=== PATIENT | female | born 1985 | race American Indian/Alaskan Native ===

== ENCOUNTER 2021-09-17 23:55 | Emergency (ER) | payer SELFPAY ==
[2021-09-18] MEDS ORDERED: ALPRAZolam 0.5 MG TAB PO ONE (00:36)
--- NOTE | 2021-09-18 00:36 | Emergency Department Report ---
HPI - General Chief Complaint: Psych Time Seen by Provider: 09/18/21 00:24 - HPI HPI: 36-year-old -[place] female presents to the emergency department with the need of a mental health evaluation. Patient called her friend because she said that there were people in her house who were trying to kill her. The patient's friend apparently had concerned that she was having some type of psychosis and called 911. Patient says that people have been following her and attempting to kill her for the past 6 months. Even during my examination the patient says that there are people right next to her that are "shaking my chair", and "I can always see them but I know that they are there." Patient denies any past medical or psychiatric history. While patient appears to be having hallucinations, she denies any auditory or visual hallucinations, and she denies any suicidal or homicidal ideations. ED Past Medical Hx - Past Medical History Previous Medical History?: No - Surgical History Past Surgical History?: No - Social History Smoking Status: Never Smoker Substance Use Type: None ED Review of Systems ROS: Stated complaint: MENTAL HEALTH Other details as noted in HPI Comment: All other systems reviewed and negative Constitutional: denies: chills, fever Respiratory: denies: cough, shortness of breath Cardiovascular: denies: chest pain, palpitations Gastrointestinal: denies: abdominal pain, vomiting Musculoskeletal: denies: back pain, arthralgia Neurological: denies: headache, weakness Psychiatric: denies: homicidal thoughts, suicidal thoughts Physical Exam - Physical Exam Vital Signs: Vital Signs 09/17/21 23:58 Temperature 98.4 F Pulse Rate 99 H Respiratory 20 Rate Blood Pressure 141/92 O2 Sat by Pulse 100 Oximetry Physical Exam: GENERAL: The patient is well-developed well-nourished. HENT: Normocephalic. Atraumatic. Patient has moist mucous membranes. EYES: Extraocular motions are intact. NECK: Supple. Trachea is midline. CHEST/LUNGS: Clear to auscultation. There is no respiratory distress noted. HEART/CARDIOVASCULAR: Regular. There is no tachycardia. There is no murmur. ABDOMEN: Abdomen is soft, nontender. Patient has normal bowel sounds. SKIN: Skin is warm and dry. NEURO: The patient is awake, alert, and cooperative. Normal speech. MUSCULOSKELETAL: There is no tenderness or deformity. There is no limitation range of motion. PSYCH: Patient is anxious. ED Course Vital Signs 09/17/21 23:58 Temperature 98.4 F Pulse Rate 99 H Respiratory 20 Rate Blood Pressure 141/92 O2 Sat by Pulse 100 Oximetry ED Medical Decision Making - Lab Data Result diagrams: 09/18/21 01:14 09/18/21 01:14 Lab Results 09/18/21 09/18/21 09/18/21 Range/Units 00:17 00:17 01:14 WBC 5.1 (4.5-11.0) K/mm3 RBC 3.59 L (3.65-5.03) M/mm3 Hgb 12.6 (10.1-14.3) gm/dl Hct 39.7 (30.3-42.9) % MCV 111 H (79-97) fl MCH 35 H (28-32) pg MCHC 32 (30-34) % RDW 16.4 H (13.2-15.2) % Plt Count 193 (140-440) K/mm3 Lymph % (Auto) 30.8 (13.4-35.0) % [place] % (Auto) 8.5 H (0.0-7.3) % Eos % (Auto) 0.2 (0.0-4.3) % Baso % (Auto) 0.7 (0.0-1.8) % Lymph # (Auto) 1.6 (1.2-5.4) K/mm3 [place] # (Auto) 0.4 (0.0-0.8) K/mm3 Eos # (Auto) 0.0 (0.0-0.4) K/mm3 Baso # (Auto) 0.0 (0.0-0.1) K/mm3 Seg Neutrophils % 59.8 (40.0-70.0) % Seg Neutrophils # 3.1 (1.8-7.7) K/mm3 Sodium (137-145) mmol/L Potassium (3.6-5.0) mmol/L Chloride (98-107) mmol/L Carbon Dioxide (22-30) mmol/L Anion Gap mmol/L BUN (7-17) mg/dL Creatinine (0.6-1.2) mg/dL Estimated GFR ml/min BUN/Creatinine Ratio % Glucose (65-100) mg/dL Calcium (8.4-10.2) mg/dL Urine Color Pearl (Yellow) Urine Turbidity Cloudy (Clear) Urine pH 6.0 (5.0-7.0) Ur Specific [place] 1.020 (1.003-1.030) Urine Protein 100 mg/dl (Negative) mg/dL Urine Glucose (UA) Neg (Negative) mg/dL Urine Ketones 20 (Negative) mg/dL Urine Blood Mod (Negative) Urine Nitrite Neg (Negative) Urine Bilirubin Sm (Negative) Urine Ictotest Negative (Negative) Urine Urobilinogen 4.0 (<2.0) mg/dL Ur Leukocyte Esterase Lg (Negative) Urine WBC (Auto) > 182.0 H (0.0-6.0) /HPF Urine RBC (Auto) 63.0 (0.0-6.0) /HPF U Epithel Cells (Auto) 2.0 (0-13.0) /HPF Urine Bacteria (Auto) 2+ (Negative) /HPF Urine WBC Clumps 2+ /HPF Hyaline Casts 5 /LPF Urine Mucus 3+ /HPF Urine Yeast (Budding) 2+ /HPF Urine Opiates Screen Presumptive negative Urine Methadone Screen Presumptive negative Ur Barbiturates Screen Presumptive negative Ur Phencyclidine Scrn Presumptive negative Ur Amphetamines Screen Presumptive negative U Benzodiazepines Scrn Presumptive negative Urine Cocaine Screen Presumptive negative U Marijuana (THC) Screen Presumptive positive Drugs of Abuse Note Disclamer Plasma/Serum Alcohol (0-0.07) % 09/18/21 09/18/21 Range/Units 01:14 01:14 WBC (4.5-11.0) K/mm3 RBC (3.65-5.03) M/mm3 Hgb (10.1-14.3) gm/dl Hct (30.3-42.9) % MCV (79-97) fl MCH (28-32) pg MCHC (30-34) % RDW (13.2-15.2) % Plt Count (140-440) K/mm3 Lymph % (Auto) (13.4-35.0) % [place] % (Auto) (0.0-7.3) % Eos % (Auto) (0.0-4.3) % Baso % (Auto) (0.0-1.8) % Lymph # (Auto) (1.2-5.4) K/mm3 [place] # (Auto) (0.0-0.8) K/mm3 Eos # (Auto) (0.0-0.4) K/mm3 Baso # (Auto) (0.0-0.1) K/mm3 Seg Neutrophils % (40.0-70.0) % Seg Neutrophils # (1.8-7.7) K/mm3 Sodium 137 (137-145) mmol/L Potassium 3.1 L (3.6-5.0) mmol/L Chloride 96.6 L (98-107) mmol/L Carbon Dioxide 22 (22-30) mmol/L Anion Gap 22 mmol/L BUN 7 (7-17) mg/dL Creatinine 0.5 L (0.6-1.2) mg/dL Estimated GFR > 60 ml/min BUN/Creatinine Ratio 14 % Glucose 79 (65-100) mg/dL Calcium 9.4 (8.4-10.2) mg/dL Urine Color (Yellow) Urine Turbidity (Clear) Urine pH (5.0-7.0) Ur Specific [place] (1.003-1.030) Urine Protein (Negative) mg/dL Urine Glucose (UA) (Negative) mg/dL Urine Ketones (Negative) mg/dL Urine Blood (Negative) Urine Nitrite (Negative) Urine Bilirubin (Negative) Urine Ictotest (Negative) Urine Urobilinogen (<2.0) mg/dL Ur Leukocyte Esterase (Negative) Urine WBC (Auto) (0.0-6.0) /HPF Urine RBC (Auto) (0.0-6.0) /HPF U Epithel Cells (Auto) (0-13.0) /HPF Urine Bacteria (Auto) (Negative) /HPF Urine WBC Clumps /HPF Hyaline Casts /LPF Urine Mucus /HPF Urine Yeast (Budding) /HPF Urine Opiates Screen Urine Methadone Screen Ur Barbiturates Screen Ur Phencyclidine Scrn Ur Amphetamines Screen U Benzodiazepines Scrn Urine Cocaine Screen U Marijuana (THC) Screen Drugs of Abuse Note Plasma/Serum Alcohol < 0.01 (0-0.07) % - Medical Decision Making This patient presents to the emergency department for a mental health evaluation. She has been having hallucinations and/or delusions in which she feels that people are following her and trying to kill her. She admits that even while in the closed psychiatric unit of the emergency department that these nonspecific individuals have even followed her in there. During my initial examination she is saying that they are standing around just making her chair shake. However the patient denies having any hallucinations or any psychiatric history. She does appear to be exhibiting signs of acute psychosis and for this reason she has been placed on a 1013 and an ED hold. Patient's labs shows hypokalemia with a potassium of 3.1 for which she was given potassium chloride. She has a urinary tract infection for which she was placed on Macrobid. Initially the patient agreed to some medication to try and rest so she was given some Xanax. This did not work for her and then the patient started becoming more anxious and agitated. She was given a dose of Geodon and now appears to be resting more comfortably. Vital signs have been reassuring throughout her ED course including being afebrile. The patient is medically cleared for psychiatric placement. Critical Care Time: No Critical care attestation.: If time is entered above; I have spent that time in minutes in the direct care of this critically ill patient, excluding procedure time. ED Disposition Clinical Impression: Acute psychosis, Delusions, Paranoia Disposition: [address] [place] [address] Is pt being admited?: No Condition: Stable Time of Disposition: 04:41
[2021-09-18 00:58] LABS: Bacteria,Urine 2+ /HPF (Negative); Bilirubin,Urine SM (Negative); Blood,Urine MOD (Negative); Color,Urine Amber (Yellow); Hyaline Casts,Urine 5 /LPF; Mucus,Urine 3+ /HPF
[2021-09-18 00:59] LABS: WBC,Urine > 182.0 /HPF (0.0-6.0)
[2021-09-18 01:05] LABS: Ictotest,Urine Negative (Negative)
[2021-09-18 01:19] LABS: Amphetamine Screen,Urine PRESUMPTIVE NEGATIVE; Benzodiazepines Screen,Urine PRESUMPTIVE NEGATIVE; Cannabinoid Screen,Urine PRESUMPTIVE POSITIVE; Cocaine Screen,Urine PRESUMPTIVE NEGATIVE; Methadone Screen,Urine PRESUMPTIVE NEGATIVE; Opiate Screen,Urine PRESUMPTIVE NEGATIVE
[2021-09-18] MEDS: NITROFURANTOIN MONOHYD/M-CRYST 100 MG CAP PO SCH ×2 (01:50→23:15)
[2021-09-18 02:36] LABS: Basophils % (Auto) 0.7 % (0.0-1.8); Eosinophils % (Auto) 0.2 % (0.0-4.3); Hematocrit 39.7 % (30.3-42.9); Hemoglobin 12.6 gm/dl (10.1-14.3); Lymphocytes # (Auto) 1.6 K/mm3 (1.2-5.4); Lymphocytes % (Auto) 30.8 % (13.4-35.0); Mean Corpuscular HGB Conc 32 % (30-34); Mean Corpuscular Volume 111 fl (79-97); Monocytes # (Auto) 0.4 K/mm3 (0.0-0.8); Monocytes % (Auto) 8.5 % (0.0-7.3); Platelet Count 193 K/mm3 (140-440); Red Blood Count 3.59 M/mm3 (3.65-5.03); Red Cell Distribution Width 16.4 % (13.2-15.2)
[2021-09-18] MEDS ORDERED: ZIPRASIDONE MESYLATE 20 MG VIAL IM ONE (03:15)
[2021-09-18 03:45] LABS: BUN/Creatinine Ratio 14; Blood Urea Nitrogen 7 mg/dL (7-17); Calcium 9.4 mg/dL (8.4-10.2); Hemolysis Index 19
[2021-09-18] MEDS ORDERED: POTASSIUM CHLORIDE ER 20 MEQ TAB PO ONE (04:38)
--- NOTE | 2021-09-18 11:34 | Consultation ---
History of Present Illness - Reason for Consult Consult date: 09/18/21 Reason for consult: mental health evaluation - History of Present Psychiatric Illness ED Note :36-year-old -[place] female presents to the emergency department with the need of a mental health evaluation. Patient called her friend because she said that there were people in her house who were trying to kill her. The patient's friend apparently had concerned that she was having some type of psychosis and called 911. Patient says that people have been following her and attempting to kill her for the past 6 months. Even during my examination the patient says that there are people right next to her that are "shaking my chair", and "I can always see them but I know that they are there." Patient denies any past medical or psychiatric history. While patient appears to be having hallucinations, she denies any auditory or visual hallucinations, and she denies any suicidal or homicidal ideation. Alana Strauss is a 36 year old female with no psychiatric history who presents to the for a mental health evaluation. In my interview with the patient, she is calm. The patient is delusional, stating that there are people in her house threatening to kill her for the past one year and that the threats worsened yesterday. She reports having auditory hallucinations stating voices are telling her " are you ready to ." She also reports visual hallucinations stating " I see a whole family." She denies any suicidal/homicidal ideation. PAST PSYCHIATRIC HISTORY: Diagnoses: Denies Suicide attempts or Self-harm behavior: Denies Prior psychiatric hospitalizations:Denies Substance Abuse history:Marijuana, alcohol Previous psychiatric medications tried: Denies Outpatient treatment: Denies PAST MEDICAL HISTORY: None reported or document Family Psychiatric History: None reported or documented SOCIAL HISTORY Marital Status: Living Arrangements: Lives alone Employment Status: employed Access to guns/weapons: Denies Education: 12th grade History of Abuse: Denies Legal History: Denies REVIEW OF SYSTEMS Constitutional: Negative for weight loss ENT: Negative for stridor Respiratory: Negative for cough or hemoptysis All other systems reviewed and are negative MENTAL STATUS EXAMINATION General Appearance and Behavior: Age appropriate, good hygiene, wearing appropriate clothes. cooperative Cooperation: cooperative Psychomotor Behavior: Psychomotor normal Mood:"anxious" Affect and affective range: congruent to stated mood Thought Process: Tangential Thought Content:Paranoid Speech: normal tone and pace Suicidal Ideation:Denies Homicidal Ideation: Denies Hallucinations: Auditory/visual. Delusions: None elicited Impulse Control: Limited Insight and Judgment: Limited Memory: limited Attention: Distractible Orientation: alert and oriented Assessment and Plan (1) Schizophrenia disorder (2) Treatment Plan 1013 Zyprexa 5mg po BID Trazodone 50mg po QHS Sitter: per primary Medical: per primary Disposition: Recommend acute psychiatric inpatient treatment. Will follow. Thanks Case staffed with Dr. Gomes Medications and Allergies Medications and Allergies Allergies Allergy/AdvReac Type Severity Reaction Status Date / Time No Known Allergies Allergy Verified 09/18/21 01:09 Active Meds: Active Medications Nitrofurantoin Macrocrystals (Nitrofurantoin Monohyd/M-Cryst 100 Mg Cap) 100 mg PO Q12HR ALEJANDRO Last Admin: 09/18/21 01:50 Dose: 100 mg Documented by: Mental Status Exam - Vital signs Last Vital Signs Temp 98.3 F 09/18/21 01:55 Pulse 105 H 09/18/21 01:55 Resp 18 09/18/21 04:21 BP 107/77 09/18/21 06:35 Pulse Ox 99 09/18/21 04:21 Results Result Diagrams: 09/18/21 01:14 09/18/21 01:14 Abnormal lab results 09/18/21 09/18/21 09/18/21 Range/Units 00:17 01:14 01:14 RBC 3.59 L (3.65-5.03) M/mm3 MCV 111 H (79-97) fl MCH 35 H (28-32) pg RDW 16.4 H (13.2-15.2) % [place] % (Auto) 8.5 H (0.0-7.3) % Potassium 3.1 L (3.6-5.0) mmol/L Chloride 96.6 L (98-107) mmol/L Creatinine 0.5 L (0.6-1.2) mg/dL Urine WBC (Auto) > 182.0 H (0.0-6.0) /HPF All other labs normal.
[2021-09-18 12:09] LABS: Blood Urea Nitrogen 8 mg/dL (7-17); Calcium 9.8 mg/dL (8.4-10.2); Hemolysis Index 7
[2021-09-18 12:10] LABS: BUN/Creatinine Ratio 16
--- NOTE | 2021-09-18 13:08 | Event Note ---
Date: 09/18/21 36-year-old female seen for acute psychosis. She was seen by my colleague and was medically cleared for psychiatric evaluation and placement. Noted to have urinary tract infection as well as hypokalemia on labs. Patient was started on Macrobid. Potassium was repleted and repeat labs today show potassium level which is within the normal range. Vital signs reviewed and are stable. Currently awaiting inpatient psychiatric facility placement.
[2021-09-18] MEDS ORDERED: traZODone 50 MG TAB PO SCH (22:00)
[2021-09-19] MEDS: NITROFURANTOIN MONOHYD/M-CRYST 100 MG CAP PO SCH (09:55)
--- NOTE | 2021-09-19 11:12 | Progress Note ---
Subjective - Reason for Consult Consult date: 09/19/21 Reason for consult: mental health evaluation - Chief Complaint Chief complaint: The patient is sen this morning, she continues to have auditory/visual hallucinations stating " people are under the chair." REVIEW OF SYSTEMS Constitutional: Negative for weight loss ENT: Negative for stridor Respiratory: Negative for cough or hemoptysis All other systems reviewed and are negative MENTAL STATUS EXAMINATION General Appearance and Behavior: Age appropriate, good hygiene, wearing appropriate clothes. cooperative Cooperation: cooperative Psychomotor Behavior: Psychomotor normal Mood:"ok" Affect and affective range: constricted Thought Process: circumstantial Thought Content:hallucinations Speech: normal tone and pace Suicidal Ideation:Denies Homicidal Ideation: Denies Hallucinations: Auditory/visual. Delusions: None elicited Impulse Control: Limited Insight and Judgment: Limited Memory: limited Attention: Distractible Orientation: alert and oriented Assessment and Plan (1) Schizophrenia disorder (2) Treatment Plan 1013 Zyprexa 10mg po daily Trazodone 50mg po QHS Sitter: per primary Medical: per primary Disposition: Recommend acute psychiatric inpatient treatment. Will follow. Thanks Case staffed with Dr. Gomes Medications and Allergies Mental Status Exam - Vital signs Last Vital Signs Temp 98.3 F 09/19/21 08:43 Pulse 87 09/19/21 08:43 Resp 18 09/19/21 08:43 BP 116/66 09/19/21 08:43 Pulse Ox 100 09/19/21 10:01
[2021-09-19] MEDS ORDERED: CETIRIZINE 10 MG TAB ONE (12:09)
--- NOTE | 2021-09-19 13:04 | Event Note ---
Date: 09/19/21 The patient was evaluated in the emergency department for symptoms described in the history of present illness. He/she was evaluated in the context of the global COVID-19 pandemic, which necessitated consideration that the patient might be at risk for infection with the virus that causes COVID-19. Institutional protocols and algorithms that pertain to the evaluation of patients at risk for COVID-19 are in a state of rapid change based on information released by regulatory bodies including the CDC and federal and state organizations. These policies and algorithms were followed during the patient's care in the emergency department. Please note that these policies, procedures and recommendations changed on a rapid basis. Laboratory studies, vital signs, nursing documentation, ER documentation, and psychiatric documentation are reviewed and appreciated. Nursing team reports no acute events this morning or concerns. The patient is awake and not in any acute distress. Patient started on Macrobid for pyuria with bacteriuria. The patient was deemed medically suitable for psychiatric disposition and placement during her initial ER evaluation. The patient continues to remain medically suitable for psychiatric placement and disposition. sHe is currently pending psychiatric placement. Nursing team endorses that the patient still presents as psychotic and disorganized. Vital Signs 09/17/21 09/18/21 09/18/21 23:58 01:55 04:21 Temperature 98.4 F 98.3 F Pulse Rate 99 H 105 H Respiratory 20 18 18 Rate Blood Pressure 141/92 Blood Pressure 98/71 [Right] O2 Sat by Pulse 100 98 99 Oximetry 09/18/21 09/18/21 09/18/21 06:35 12:49 20:24 Temperature 98.4 F 99.0 F Pulse Rate 89 79 Respiratory 16 16 Rate Blood Pressure Blood Pressure 107/77 90/64 95/66 [Right] O2 Sat by Pulse 100 Oximetry 09/19/21 09/19/21 09/19/21 02:58 03:56 08:43 Temperature 98.3 F 98.3 F Pulse Rate 83 87 Respiratory 18 18 18 Rate Blood Pressure Blood Pressure 106/55 116/66 [Right] O2 Sat by Pulse 100 100 100 Oximetry 09/19/21 10:01 Temperature Pulse Rate Respiratory Rate Blood Pressure Blood Pressure [Right] O2 Sat by Pulse 100 Oximetry Lab Results 09/18/21 09/18/21 09/18/21 Range/Units 00:17 00:17 01:14 WBC 5.1 (4.5-11.0) K/mm3 RBC 3.59 L (3.65-5.03) M/mm3 Hgb 12.6 (10.1-14.3) gm/dl Hct 39.7 (30.3-42.9) % MCV 111 H (79-97) fl MCH 35 H (28-32) pg MCHC 32 (30-34) % RDW 16.4 H (13.2-15.2) % Plt Count 193 (140-440) K/mm3 Lymph % (Auto) 30.8 (13.4-35.0) % [place] % (Auto) 8.5 H (0.0-7.3) % Eos % (Auto) 0.2 (0.0-4.3) % Baso % (Auto) 0.7 (0.0-1.8) % Lymph # (Auto) 1.6 (1.2-5.4) K/mm3 [place] # (Auto) 0.4 (0.0-0.8) K/mm3 Eos # (Auto) 0.0 (0.0-0.4) K/mm3 Baso # (Auto) 0.0 (0.0-0.1) K/mm3 Seg Neutrophils % 59.8 (40.0-70.0) % Seg Neutrophils # 3.1 (1.8-7.7) K/mm3 Sodium (137-145) mmol/L Potassium (3.6-5.0) mmol/L Chloride (98-107) mmol/L Carbon Dioxide (22-30) mmol/L Anion Gap mmol/L BUN (7-17) mg/dL Creatinine (0.6-1.2) mg/dL Estimated GFR ml/min BUN/Creatinine Ratio % Glucose (65-100) mg/dL Calcium (8.4-10.2) mg/dL HCG, Qual (Negative) Urine Color Pearl (Yellow) Urine Turbidity Cloudy (Clear) Urine pH 6.0 (5.0-7.0) Ur Specific [place] 1.020 (1.003-1.030) Urine Protein 100 mg/dl (Negative) mg/dL Urine Glucose (UA) Neg (Negative) mg/dL Urine Ketones 20 (Negative) mg/dL Urine Blood Mod (Negative) Urine Nitrite Neg (Negative) Urine Bilirubin Sm (Negative) Urine Ictotest Negative (Negative) Urine Urobilinogen 4.0 (<2.0) mg/dL Ur Leukocyte Esterase Lg (Negative) Urine WBC (Auto) > 182.0 H (0.0-6.0) /HPF Urine RBC (Auto) 63.0 (0.0-6.0) /HPF U Epithel Cells (Auto) 2.0 (0-13.0) /HPF Urine Bacteria (Auto) 2+ (Negative) /HPF Urine WBC Clumps 2+ /HPF Hyaline Casts 5 /LPF Urine Mucus 3+ /HPF Urine Yeast (Budding) 2+ /HPF Urine Opiates Screen Presumptive negative Urine Methadone Screen Presumptive negative Ur Barbiturates Screen Presumptive negative Ur Phencyclidine Scrn Presumptive negative Ur Amphetamines Screen Presumptive negative U Benzodiazepines Scrn Presumptive negative Urine Cocaine Screen Presumptive negative U Marijuana (THC) Screen Presumptive positive Drugs of Abuse Note Disclamer Plasma/Serum Alcohol (0-0.07) % Coronavirus (PCR) (Negative) 09/18/21 09/18/21 09/18/21 Range/Units 01:14 01:14 11:36 WBC (4.5-11.0) K/mm3 RBC (3.65-5.03) M/mm3 Hgb (10.1-14.3) gm/dl Hct (30.3-42.9) % MCV (79-97) fl MCH (28-32) pg MCHC (30-34) % RDW (13.2-15.2) % Plt Count (140-440) K/mm3 Lymph % (Auto) (13.4-35.0) % [place] % (Auto) (0.0-7.3) % Eos % (Auto) (0.0-4.3) % Baso % (Auto) (0.0-1.8) % Lymph # (Auto) (1.2-5.4) K/mm3 [place] # (Auto) (0.0-0.8) K/mm3 Eos # (Auto) (0.0-0.4) K/mm3 Baso # (Auto) (0.0-0.1) K/mm3 Seg Neutrophils % (40.0-70.0) % Seg Neutrophils # (1.8-7.7) K/mm3 Sodium 137 137 (137-145) mmol/L Potassium 3.1 L 3.7 (3.6-5.0) mmol/L Chloride 96.6 L 99.1 (98-107) mmol/L Carbon Dioxide 22 25 (22-30) mmol/L Anion Gap 22 17 mmol/L BUN 7 8 (7-17) mg/dL Creatinine 0.5 L 0.5 L (0.6-1.2) mg/dL Estimated GFR > 60 > 60 ml/min BUN/Creatinine Ratio 14 16 % Glucose 79 88 (65-100) mg/dL Calcium 9.4 9.8 (8.4-10.2) mg/dL HCG, Qual (Negative) Urine Color (Yellow) Urine Turbidity (Clear) Urine pH (5.0-7.0) Ur Specific [place] (1.003-1.030) Urine Protein (Negative) mg/dL Urine Glucose (UA) (Negative) mg/dL Urine Ketones (Negative) mg/dL Urine Blood (Negative) Urine Nitrite (Negative) Urine Bilirubin (Negative) Urine Ictotest (Negative) Urine Urobilinogen (<2.0) mg/dL Ur Leukocyte Esterase (Negative) Urine WBC (Auto) (0.0-6.0) /HPF Urine RBC (Auto) (0.0-6.0) /HPF U Epithel Cells (Auto) (0-13.0) /HPF Urine Bacteria (Auto) (Negative) /HPF Urine WBC Clumps /HPF Hyaline Casts /LPF Urine Mucus /HPF Urine Yeast (Budding) /HPF Urine Opiates Screen Urine Methadone Screen Ur Barbiturates Screen Ur Phencyclidine Scrn Ur Amphetamines Screen U Benzodiazepines Scrn Urine Cocaine Screen U Marijuana (THC) Screen Drugs of Abuse Note Plasma/Serum Alcohol < 0.01 (0-0.07) % Coronavirus (PCR) (Negative) 09/18/21 09/18/21 Range/Units 14:21 Unknown WBC (4.5-11.0) K/mm3 RBC (3.65-5.03) M/mm3 Hgb (10.1-14.3) gm/dl Hct (30.3-42.9) % MCV (79-97) fl MCH (28-32) pg MCHC (30-34) % RDW (13.2-15.2) % Plt Count (140-440) K/mm3 Lymph % (Auto) (13.4-35.0) % [place] % (Auto) (0.0-7.3) % Eos % (Auto) (0.0-4.3) % Baso % (Auto) (0.0-1.8) % Lymph # (Auto) (1.2-5.4) K/mm3 [place] # (Auto) (0.0-0.8) K/mm3 Eos # (Auto) (0.0-0.4) K/mm3 Baso # (Auto) (0.0-0.1) K/mm3 Seg Neutrophils % (40.0-70.0) % Seg Neutrophils # (1.8-7.7) K/mm3 Sodium (137-145) mmol/L Potassium (3.6-5.0) mmol/L Chloride (98-107) mmol/L Carbon Dioxide (22-30) mmol/L Anion Gap mmol/L BUN (7-17) mg/dL Creatinine (0.6-1.2) mg/dL Estimated GFR ml/min BUN/Creatinine Ratio % Glucose (65-100) mg/dL Calcium (8.4-10.2) mg/dL HCG, Qual Negative (Negative) Urine Color (Yellow) Urine Turbidity (Clear) Urine pH (5.0-7.0) Ur Specific [place] (1.003-1.030) Urine Protein (Negative) mg/dL Urine Glucose (UA) (Negative) mg/dL Urine Ketones (Negative) mg/dL Urine Blood (Negative) Urine Nitrite (Negative) Urine Bilirubin (Negative) Urine Ictotest (Negative) Urine Urobilinogen (<2.0) mg/dL Ur Leukocyte Esterase (Negative) Urine WBC (Auto) (0.0-6.0) /HPF Urine RBC (Auto) (0.0-6.0) /HPF U Epithel Cells (Auto) (0-13.0) /HPF Urine Bacteria (Auto) (Negative) /HPF Urine WBC Clumps /HPF Hyaline Casts /LPF Urine Mucus /HPF Urine Yeast (Budding) /HPF Urine Opiates Screen Urine Methadone Screen Ur Barbiturates Screen Ur Phencyclidine Scrn Ur Amphetamines Screen U Benzodiazepines Scrn Urine Cocaine Screen U Marijuana (THC) Screen Drugs of Abuse Note Plasma/Serum Alcohol (0-0.07) % Coronavirus (PCR) Negative (Negative)
[2021-09-19 18:14] VITALS: BP 114/69
== END 2021-09-19 16:17 ==
LOC: ED 23:55
DX: F23 Brief psychotic disorder (principal); F22 Delusional disorders; Z20.822 Contact with and (suspected) exposure to COVID-19
CPT/HCPCS: 36415; 80048; 80307; 81001; 84703; 85025; 96372; 99285; J3486; U0003; 80320; G0480

== ENCOUNTER 2022-04-23 11:56 | Emergency (ER) | payer SELFPAY ==
[2022-04-23 13:38] LABS: Bilirubin,Urine SM (Negative); Blood,Urine NEG (Negative); Color,Urine Amber (Yellow)
[2022-04-23 13:39] LABS: Bacteria,Urine 1+ /HPF (Negative); Mucus,Urine 2+ /HPF
[2022-04-23 13:41] LABS: Amphetamine Screen,Urine Negative; Benzodiazepines Screen,Urine Negative; Cannabinoid Screen,Urine Negative; Cocaine Screen,Urine Negative; Methadone Screen,Urine Negative; Opiate Screen,Urine Negative
[2022-04-23 13:54] LABS: Basophils % (Auto) 0.9 % (0.0-1.8); Eosinophils % (Auto) 0.3 % (0.0-4.3); Hematocrit 39.2 % (30.3-42.9); Hemoglobin 13.7 gm/dl (10.1-14.3); Lymphocytes # (Auto) 1.2 K/mm3 (1.2-5.4); Mean Corpuscular HGB Conc 35 % (30-34); Mean Corpuscular Volume 102 fl (79-97); Monocytes # (Auto) 0.4 K/mm3 (0.0-0.8); Monocytes % (Auto) 9.5 % (0.0-7.3); Platelet Count 168 K/mm3 (140-440); Red Blood Count 3.85 M/mm3 (3.65-5.03); Red Cell Distribution Width 18.2 % (13.2-15.2)
[2022-04-23 14:34] LABS: Blood Urea Nitrogen 9 mg/dL (7-17); Calcium 9.2 mg/dL (8.4-10.2); Hemolysis Index 4
[2022-04-23 14:37] LABS: BUN/Creatinine Ratio 18
[2022-04-23 15:08] LABS: Ictotest,Urine Negative (Negative)
[2022-04-23] MEDS ORDERED: POTASSIUM CHLORIDE 10 MEQ 10 MEQ/100 ML BAG IV ONE (20:07)
[2022-04-23] MEDS ORDERED: POTASSIUM CHLORIDE ER 20 MEQ TAB PO ONE (20:07)
[2022-04-23] MEDS ORDERED: SODIUM CHLORIDE 0.9% 500 ML 500 ML ONE (20:14)
--- NOTE | 2022-04-23 20:47 | Emergency Department Report ---
ED Psych HPI - General Chief Complaint: Psych Stated Complaint: MENTAL EVAL Time Seen by Provider: 04/23/22 20:04 Source: patient, family Mode of arrival: Ambulatory - History of Present Illness Initial Comments: 37-year-old female with a history of anxiety, depression, prior self-reported history of admission to psychiatric facility for psychosis, presents stating she feels she is having psychosis. Patient reports she self discontinued her Zoloft and Zyprexa "because I did not like the way they were making me feel." She states she had difficulty functioning at her regular job and felt it was best to stop these medications. Patient reports that since then she has been having several weeks of worsening auditory and visual hallucinations, stating "the voices are telling me they are going to kill me." She states she also sees shadows and flashes of light. Patient states "this is just how my last episode of psychosis presented." With respect to hypokalemia, patient denies any symptoms. No chest pain no muscle weakness no dizziness no tinnitus no palpitations no shortness of breath. She denies any diarrhea and/or vomiting. Pain 0/10. MD Complaint: feels depressed, other (psychosis) -: Gradual, week(s) Associated Psychiatric Symptoms: depression, racing thoughts, auditory hallucinations, visual hallucinations, delusions History of same: Yes Quality: constant Worsens With: medication Context: recent alcohol abuse, other (last alcohol drink was 2 days ago) Treatments Prior to Arrival: none If Self Harm: other (Patient denies SI or HI) - Related Data Home Medications Medication Instructions Recorded Confirmed Last Taken No Known Home Medications [No 09/19/21 09/19/21 Unknown Reported Home Medications] Allergies Allergy/AdvReac Type Severity Reaction Status Date / Time No Known Allergies Allergy Verified 09/18/21 01:09 ED Review of Systems ROS: Stated complaint: MENTAL EVAL Other details as noted in HPI Comment: All other systems reviewed and negative Constitutional: no symptoms reported Eyes: as per HPI ENT: as per HPI Respiratory: no symptoms reported Cardiovascular: denies: chest pain, palpitations, dyspnea on exertion, orthopnea, edema, syncope, paroxysmal nocturnal dyspnea Endocrine: no symptoms reported Gastrointestinal: denies: abdominal pain, nausea, vomiting, diarrhea, constipation, hematemesis, melena, hematochezia, other Genitourinary: denies: urgency, dysuria, frequency Musculoskeletal: denies: as per HPI Skin: denies: rash, lesions, change in color, change in hair/nails Neurological: denies: headache, weakness, numbness, abnormal gait, vertigo, other Psychiatric: anxiety, depression, auditory hallucinations, visual hallucinations. denies: homicidal thoughts, suicidal thoughts Hematological/Lymphatic: denies: easy bleeding, easy bruising, swollen glands ED Past Medical Hx - Past Medical History Previous Medical History?: Yes Hx Psychiatric Treatment: Yes (ETOH abuse, Schizophrenia, Psychosis) - Surgical History Past Surgical History?: No - Social History Smoking Status: Never Smoker Substance Use Type: None - Medications Home Medications: Home Medications Medication Instructions Recorded Confirmed Last Taken Type No Known Home Medications [No 09/19/21 09/19/21 Unknown History Reported Home Medications] ED Physical Exam - General Limitations: No Limitations General appearance: alert, in no apparent distress - Head Head exam: Present: atraumatic, normocephalic, normal inspection - Eye Eye exam: Present: normal appearance, PERRL, EOMI ( ) Pupils: Present: normal accommodation - ENT ENT exam: Present: normal exam, mucous membranes moist, normal external ear exam - Neck Neck exam: Present: normal inspection - Respiratory Respiratory exam: Present: normal lung sounds bilaterally - Cardiovascular Cardiovascular Exam: Present: regular rate, normal rhythm - GI/Abdominal GI/Abdominal exam: Present: soft - Extremities Exam Extremities exam: Present: normal inspection, full ROM - Back Exam Back exam: Present: normal inspection, full ROM - Psychiatric Psychiatric exam: Present: normal affect, normal mood - Skin Skin exam: Present: warm, intact ED Course Vital Signs 04/23/22 04/23/22 04/23/22 12:41 19:06 19:15 Temperature 98.3 F Pulse Rate 102 H 83 90 Respiratory 16 15 22 Rate Blood Pressure 112/81 120/82 O2 Sat by Pulse 100 98 99 Oximetry 04/23/22 04/23/22 04/23/22 19:31 19:45 20:01 Temperature Pulse Rate 90 90 86 Respiratory 15 14 14 Rate Blood Pressure 119/70 119/70 118/82 O2 Sat by Pulse 99 100 Oximetry 04/23/22 04/23/22 04/23/22 20:15 20:31 20:45 Temperature Pulse Rate 91 H 90 84 Respiratory 16 14 15 Rate Blood Pressure 118/82 135/87 135/87 O2 Sat by Pulse 99 98 99 Oximetry 04/23/22 04/23/22 04/23/22 21:01 21:15 21:31 Temperature Pulse Rate 77 79 81 Respiratory 14 14 14 Rate Blood Pressure 117/80 117/80 129/85 O2 Sat by Pulse 99 100 99 Oximetry 04/23/22 04/23/22 04/23/22 21:45 22:01 22:15 Temperature Pulse Rate 80 82 84 Respiratory 15 16 14 Rate Blood Pressure 129/85 125/84 125/84 O2 Sat by Pulse 99 99 Oximetry 04/23/22 04/23/22 22:31 22:45 Temperature Pulse Rate 77 78 Respiratory 17 13 Rate Blood Pressure 105/78 125/84 O2 Sat by Pulse 89 99 Oximetry ED Medical Decision Making - Lab Data Result diagrams: 04/23/22 13:26 04/23/22 20:31 - EKG Data -: EKG Interpreted by Me EKG shows normal: sinus rhythm Rate: normal - EKG Data When compared to previous EKG there are: no significant change - Medical Decision Making 37-year-old female with a self-reported history of psychosis, anxiety and depression, presents for evaluation of what she states is active psychosis which consist of auditory visual hallucinations, visualization of shadows and flashing lights, and reports that "voices are telling me they are going to kill me." Vital signs stable. Patient appears depressed on examination and she has a flat affect, providing little to no eye contact with this provider during HPI and physical examination. Serum labs reviewed. Patient had serum labs ordered in triage and per review she had a potassium level of 2.8. This was repeated upon the patient's arrival to her emergency department examination room, as the patient had been in the waiting room for several hours. Repeat prior to initiate action of treatment was 3.1. The patient was given potassium chloride 40 mill equivalents by mouth and 10 mEq IV. Serum magnesium level was found to be low as well. Patient given 1 g of magnesium sulfate intravenously. Patient has been deemed to be medically cleared. 1013 form signed. Psychiatry consult placed. Critical care attestation.: If time is entered above; I have spent that time in minutes in the direct care of this critically ill patient, excluding procedure time. ED Disposition Clinical Impression: Psychosis, Hypokalemia, Hypomagnesemia Disposition: 30 STILL A PATIENT Is pt being admited?: No Does the pt Need Aspirin: No Condition: Stable Referrals: KATHARINE MERAZ MD [Primary Care Provider] - 3-5 Days
[2022-04-23] MEDS ORDERED: MAGNESIUM SULFATE 1 GM in SODIUM CHLORIDE 0.9% 50 ML IV ONE (22:52)
[2022-04-24 11:02] LABS: HCG Qualitative,Urine Negative (Negative)
[2022-04-24] MEDS ORDERED: SULFAMETHOXAZOLE/TRIMETHOPRIM 800/160MG DS TAB PO ONE (11:15)
--- NOTE | 2022-04-24 11:15 | Event Note ---
Date: 04/24/22 vss, potassium replaced will check lab , uti noted , awaiting psych assessment no evsnts overnight
[2022-04-24 12:27] LABS: Blood Urea Nitrogen 6 mg/dL (7-17); Calcium 9.4 mg/dL (8.4-10.2); Hemolysis Index 4
[2022-04-24 12:28] LABS: BUN/Creatinine Ratio 12
[2022-04-24 13:22] VITALS: BP 114/82
== END 2022-04-24 13:21 | disposition still patient (30) ==
LOC: ED 11:56
DX: F29 Unspecified psychosis not due to a substance or known physiological condition (principal); E87.6 Hypokalemia; E83.42 Hypomagnesemia; F20.9 Schizophrenia, unspecified; Z20.822 Contact with and (suspected) exposure to COVID-19; Z79.899 Other long term (current) drug therapy
CPT/HCPCS: 36415; 80048; 80307; 81001; 81025; 83735; 84132; 85025; 87086; 96361; 96365; 99284; J3475; J3480; J7040; U0003; 80320; G0480